=== PATIENT | female | born 1945 | race Caucasian/White ===

== ENCOUNTER → 2016-08-16 | Outpatient (CLI) | payer BC, MEDICARE ==
--- NOTE | 2016-08-16 18:35 | HKNOTE ---
DATE OF SERVICE: 08/16/2016 The patient has recurrence of pain in both knees. The cortisone injections gave her 5 months of rel ief! DIAGNOSIS: Degenerative osteoarthritis of both knees. MANAGEMENT: Under sterile conditions, given injection of 2 mL of Kenalog and 6 mL of 2% lidocaine i nto each knee and she will be seen again as necessary for further evaluation and treatment. Dictated By: TUNG LEBLANC/CASPER Conf#: [id number] DID#: [id number]
== END | disposition home or self-care (01) ==
LOC: HKI 14:30
DX: M17.0 Bilateral primary osteoarthritis of knee (principal)
CPT/HCPCS: 20610; G0463

== ENCOUNTER → 2016-11-22 | Outpatient (CLI) | payer BC, MEDICARE ==
--- NOTE | 2016-11-23 01:13 | HKNOTE ---
DATE OF SERVICE: 11/22/2016 SUBJECTIVE: The patient continues to complain of pain in both knees. She is not yet ready to consider knee replacement surgery. PHYSICAL EXAMINATION: Examination of the knee today unchanged since the last visit. Blood pressure is 165/75, temperature 98.1. MANAGEMENT: Under sterile conditions, the patient given an injection of 2 mL of Kenalog and 6 mL of 2 percent lidocaine into each knee, and she will be seen again as necessary. Dictated By: Ramiro Kaur MD /vinnie/nishi /Document#: [id number]
== END | disposition home or self-care (01) ==
LOC: HKI 13:48
DX: M25.562 Pain in left knee (principal); M25.561 Pain in right knee
CPT/HCPCS: 20610; G0463

== ENCOUNTER → 2017-04-04 | Outpatient (CLI) | payer BC, MEDICARE ==
--- NOTE | 2017-04-05 12:18 | HKNOTE ---
DATE OF SERVICE: 04/04/2017 The patient has a recurrence of pain in both knees. She needs to have knee replacement surgery, but she states "I am not ready to have it yet." She requests repeat cortisone injections into each kne e, which helps her to a great degree. MANAGEMENT: Under sterile conditions, she was given injection of 1 mL of Kenalog and 5 mL of 2% lid ocaine into each knee and she will be seen again as necessary. Dictated By: TUNG LEBLANC/CASPER Conf#: [id number] DID#: [id number]
== END | disposition home or self-care (01) ==
LOC: HKI 09:38
DX: M25.562 Pain in left knee (principal); M25.561 Pain in right knee
CPT/HCPCS: G0463

== ENCOUNTER → 2017-07-04 | Outpatient (CLI) | END | disposition home or self-care (01) ==

== ENCOUNTER → 2017-08-03 | Outpatient (CLI) | END | disposition home or self-care (01) ==

== ENCOUNTER → 2017-10-02 | Outpatient (CLI) | END | disposition home or self-care (01) ==

== ENCOUNTER → 2018-01-05 | Outpatient (CLI) | END | disposition home or self-care (01) ==

== ENCOUNTER → 2018-04-06 | Outpatient (CLI) | END | disposition home or self-care (01) ==

== ENCOUNTER → 2018-07-19 | Outpatient (CLI) | payer BC, MEDICARE ==
--- NOTE | 2018-07-19 18:54 | CONS ---
Assessment/Plan Assessment/Plan Hospital Course (Demo Recall) 72-year-old female with bilateral knee osteoarthritis worse on the left than the right. The osteoarthritis is most significant in the medial compartment. No current x-rays. At this time the patient is not ready for surgery but think she will be ready later this year. She would like to try steroid injections one more time. Plan: Bilateral knee steroid injections Return to clinic in approximately 1 month to further discuss and schedule surgery if the patient wishes Low impact activities Assessment/Plan (Daily) Left and right knee steroid injection procedure: Risks and benefits of steroid injection reviewed with patient. The risks include infection, failure, pain, swelling, nerve/tendon/ligament damage. The patient verbalized understanding and verbal consent was obtained prior to procedure. The left and right knee was prepped in a sterile fashion with alcohol and betadine the site of injection was confirmed. Anteromedial approach was used. The skin and capsule was anesthetized with 3mL 1% lidocaine. The left and right knee were each injected with 2mL 1% lidocaine, 2mL 0.25% bupivacaine, 40mg Depo- Medrol. Injection flowed freely. Good hemostasis was achieved and no complications noted. The patient tolerated the procedure well. Limit activity and ice for 24-48 hours Consultation Date/Type/Reason Admit Date/Time Date of Consultation: Jul 19, 2018 Date/Time of Note DATE: 07/19/18 TIME: 18:49 Hx of Present Illness Is a 72-year-old female with a chief complaint of right and left knee pain. She has previously seen Dr. Kaur for many years and has underwent injection therapy. Steroid injections have helped approximately 3 months. The pain is worse in the left knee. The pain began approximately years ago. The patient's pain is in the medial aspect of the right and left knee. Pain is not radiating to the lower leg. The pain is rated as a 8/10. Patient denies complaints of numbness or tingling. The pain is exacerbated by climbing stairs and ambulation. Pain is not relieved by NSAID's. ----- Duration: Years Injury: No Walking tolerance: 15 minutes Limp: Yes Support: No Swelling: No Crepitation: Yes Instability: No Stairs: Difficult Physical Therapy: None recent Injections: 3 months ago bilateral knee steroid injections NSAID's: No Prior surgery: Multiple ovarian surgeries Back pain: No Hip pain: No Risk of AVN : No Patient denies fever, chills, shortness of breath, chest pain, nausea/vomiting, constipation, diarrhea, numbness, and tingling. Past Medical History Hypertension Past Surgical History Ovarian cyst surgeries Family History Significant Family History: no pertinent family hx Social History Alcohol Use: rarely Smoking Status: Never smoker Drug Use: none Exam/Review of Systems Exam Vitals Weight: 185 pound Height: 5 foot 3 and BMI: 32.8 Temperature: 90.4 Heart Rate: 88 Blood Pressure: 165/92 Respiratory Rate: 16 Exam General: Awake, alert, in no acute distress, pleasant and cooperative Heart: regular rhythm Lungs: breathing comfortably, no tachypnea or dyspnea MUSCULOSKELETAL: Right and Left Knee This is a well developed female who is alert, oriented times three and in no apparent distress. Skin is intact over the right and left knee as well as the lower extremity with no abrasions, lacerations, or ulcerations. Observation of the patient's gait reveals an antalgic gait with varus thrust on the left. Fro ntal plane alignment is varus on the left worse than right knees. There is pain on palpation of medial joint line. The patient demonstrates grinding anteriorly with ROM. Range of motion: 0 extension to approximately 110 degrees of flexion on the left and 01 30 on the right. Collateral ligament testing reveals no instability with varus or valgus stress at 0 and 30 degrees of flexion. There is pseudolaxity on the left. Negative Juan's and negative posterior drawer. Neurovascularly intact with 5/5 EHL/tibialis anterior/gastroc. Sensation intact to light touch in a sural, saphenous, deep peroneal, superficial peroneal, medial and lateral plantar nerve distribution. Palpable, symmetric dorsalis pedis and posterior tibial pulses in both lower extremities. Hip examination normal LAN AWAD MD Jul 19, 2018 18:54
== END | disposition home or self-care (01) ==
LOC: HKI 14:26
PROVIDERS: ATTEND Orthopaedic Surgery Adult Reconstructive Orthopaedic Surgery
DX: M17.0 Bilateral primary osteoarthritis of knee (principal); I10 Essential (primary) hypertension
CPT/HCPCS: 20610; G0463